=== PATIENT | female | born 1970 | race Caucasian/White ===

== ENCOUNTER 2018-02-15 10:20 | Outpatient (CLI) ==
[2015-07-27 21:48] VITALS: BMI 39.6
--- NOTE | 2018-02-15 10:56 | DI ---
EXAM: Three views of the right ankle. History: Right ankle pain and swelling. Findings: No acute fracture or dislocation. No abnormal calcifications or radiopaque foreign bodies . Joint spaces are relatively preserved. Diffuse subcutaneous edema. Impression: No acute osseous abnormality. Diffuse subcutaneous edema
== END 2018-02-15 10:21 | disposition home or self-care (01) ==
LOC: RAD 10:20
PROVIDERS: ATTEND Family Medicine
DX: Z00.00 Encounter for general adult medical examination without abnormal findings (principal); M25.571 Pain in right ankle and joints of right foot; M79.89 Other specified soft tissue disorders
CPT/HCPCS: 36415; 80053; 80061; 82306; 85025

== ENCOUNTER 2018-10-17 04:00 | Outpatient (CLI) ==
[2015-07-27 21:48] VITALS: BMI 39.6
== END 2018-10-17 04:01 | disposition home or self-care (01) ==
LOC: LAB 04:00
PROVIDERS: ATTEND Family Medicine
DX: M54.5 Low back pain (principal)
CPT/HCPCS: 36415; 80061; 82306

== ENCOUNTER 2018-10-17 07:29 | Outpatient (CLI) ==
[2015-07-27 21:48] VITALS: BMI 39.6
--- NOTE | 2018-10-17 11:35 | MRI ---
EXAM: Lumbar spine MRI without contrast. HISTORY: Acute low back pain. COMPARISON: None. TECHNIQUE: Multiplanar, multisequence MR images were acquired of the lumbar spine without contrast. FINDINGS: Five non-rib bearing lumbar vertebra are present. Conus medullaris ends at L1-2 and is no rmal morphology and signal intensity. The lumbar vertebra are normal in height, AP alignment and int rinsic bone marrow signal. There is a minor lower thoracic and lumbar ventral spondylosis most signi ficant at T11-12 where there is mild anterior disc space narrowing, mild anterior endplate irregulari ty and type 1 endplate changes. There is minor ventral spondylosis at L1-2 and L2-3 with mild anteri or disc space narrowing and there is mild disc desiccation at L2-3 and L4-5. The partially visualized liver, spleen and kidneys are unremarkable. Scattered colonic diverticula a re identified in the partially visualized: Consistent with diverticulosis without diverticulitis. T here are no paravertebral masses. L1-2: The intervertebral disc is normal. Small right anterolateral endplate osteophytes are present with minor endplate irregularity and type 2 endplate changes. L2-3: The intervertebral disc is normal. There is minor ventral spondylosis. L3-4: The intervertebral disc is normal. L4-5: The intervertebral disc is normal. There is minor bilateral facet arthropathy and mild ligame ntum flavum hypertrophy with tiny bilateral facet effusions that may be physiologic. There is minor bilateral foraminal stenosis. L5-S1: The intervertebral disc is normal. IMPRESSION: 1. Minor lumbar degenerative spondylosis and facet arthropathy. 2. No lumbar disc herniations, pars interarticularis defects or central canal stenosis.
== END 2018-10-17 07:30 | disposition home or self-care (01) ==
LOC: RAD 07:29
PROVIDERS: ATTEND Family Medicine
DX: M54.5 Low back pain (principal)